=== PATIENT | male | born 1990 | race Caucasian/White ===

== ENCOUNTER 2017-05-09 11:57 | Emergency (ER) | payer MEDICAID, SELFPAY ==
[2017-05-09 12:13] VITALS: BP 111/70; PULSE 96; RESP 20; TEMP 37.7; O2SAT 99; BMI 19.8
[2017-05-09 12:46] LABS: UTC Influenza A Antigen Negative (Negative); UTC Influenza B Antigen Negative (Negative)
--- NOTE | 2017-05-09 13:02 | HMH.EDUTC ---
[facility] [place] Impression: Upper respiratory infection Qualifiers: URI type: unspecified URI Qualified Code(s): J06.9 - Acute upper respiratory infection, unspecified Disposition: Home, Self-Care Condition on Discharge: Good Instructions: Cough, DI for Cough -- Adult, DI for Nasal Congestion, Sore Throat, DI for Sinus Headache Additional Instructions: * Monitor Temp. Tylenol and/or Ibuprofen as needed. ER if fever is no less than 101 despite alternating Tylenol and Ibuprofen * Encourage fluids, water, Gatorade, powerade, pedialyte if infant/toddler/or child * Warm salt water gargles for throat irritation *Warm fluids *Sore throat lozenges *Sleep elevated *humidifier or vaporizer Lots of rest Increase fluids, water, Gatorade, powerade *Flonase 2 sprays each nostril daily but may take 2-3 days to notice improvement with it *Bromfed may cause drowsiness. Know how it effect you or your child. Before driving, caring for small children or sending your child to school Follow up IMMEDIATELY for new or worsening of symptoms OR no noticeable improvement over the next 48-72 hours. 911 immediately for any life threatening symptoms such as chest pain or difficulty breathing Prescriptions: Brompheniramine/Pseudoephed/Dm [Bromfed DM Cough Syrup 5mL] 10 ml PO Q4HP PRN #250 ml PRN Reason: Cough Azithromycin [Z-Aryan 250mg Tab] 250 mg PO UD DOSE PK #6 tab Fluticasone Propionate [Flonase 50mcg nasal spray 16gm] 2 spr NS DAILY #1 bottle predniSONE [Prednisone 20mg Tab] 20 mg PO BID #10 tab Time of Disposition: 13:11 Medical Decision Making - Medical Records Medical records reviewed: Yes: I reviewed the patient's medical records. Vital Signs: 05/09/17 12:13 Temperature 99.8 F H Temperature Source Temporal Artery Scan Pulse Rate [Right] 96 H Respiratory Rate 20 Blood Pressure [Right Arm] 111/70 Blood Pressure Mean [Right Arm] 83 Blood Pressure Source [Right Arm] Automatic Cuff Blood Pressure Position [Right Arm] Sitting 02 Sat by Pulse Oximetry 99 Oxygen Delivery Method Room Air - Lab Data Lab Results 05/09/17 12:45: Influenza Type A Ag Negative, Influenza Type B Ag Negative - Peter Inquiry Pt receiving controlled substance: No Peter was queried for this patient: No [facility] [place] - General Stated complaint: flu like symtoms bad massey Mode of Arrival: Ambulatory Source of Information: Patient Limitations: No Limitations Description of Symptoms (Recalled from Triage Doc. by RN): HEADACHE CONGESTION, WEAK HEENT Symptoms (Recalled from RN notes): Yes Resp Symptoms (Recalled from RN notes): No Skin Symptoms (Recalled from RN notes): No MS Symptoms (Recalled from RN notes): No Functional Status (Recalled from RN notes): N - History of Present Illness Provider Complaint: Patient state that he has been having sinus pain and pressure feeling behind his eyes for that last 2-3 days State that he feels like his throat is sore and had a sinus headache State that his nose is congestion. throat sore and feels like he has some pressure in his ears State that earlier this morning he felt like he may have a fever - Related Data Previous Rx's Medication Instructions Recorded Azithromycin [Z-Aryan 250mg Tab] 250 mg PO UD DOSE PK #6 tab 05/09/17 Brompheniramine/Pseudoephed/Dm 10 ml PO Q4HP PRN #250 ml 05/09/17 [Bromfed DM Cough Syrup 5mL] Fluticasone Propionate [Flonase 2 spr NS DAILY #1 bottle 05/09/17 50mcg nasal spray 16gm] predniSONE [Prednisone 20mg 20 mg PO BID #10 tab 05/09/17 Tab] Allergies Allergy/AdvReac Type Severity Reaction Status Date / Time No Known Allergies Allergy Verified 05/09/17 12:20 - Worker's Comp Is this a Worker's Comp case?: No [facility] History I have reviewed the patient's past medical history: Yes - *Social History Alcohol Intake: never - Psychiatric History Expresses thoughts of harming self/others: None Suicide Plan Description: No Plan ROS Obtained: Y
--- NOTE | 2017-05-09 13:06 | ED_ITS ---
[facility] – [place] Disposition Clinical Impression: Upper respiratory infection Qualifiers: URI type: unspecified URI Qualified Code(s): J06.9 - Acute upper respiratory infection, unspecified Disposition: Home, Self-Care Condition on Discharge: Good Instructions: Cough, DI for Cough -- Adult, DI for Nasal Congestion, Sore Throat, DI for Sinus Headache Additional Instructions: * Monitor Temp. Tylenol and/or Ibuprofen as needed. ER if fever is no less than 101 despite alternating Tylenol and Ibuprofen * Encourage fluids, water, Gatorade, powerade, pedialyte if infant/toddler/or child * Warm salt water gargles for throat irritation *Warm fluids *Sore throat lozenges *Sleep elevated *humidifier or vaporizer Lots of rest Increase fluids, water, Gatorade, powerade *Flonase 2 sprays each nostril daily but may take 2-3 days to notice improvement with it *Bromfed may cause drowsiness. Know how it effect you or your child. Before driving, caring for small children or sending your child to school Follow up IMMEDIATELY for new or worsening of symptoms OR no noticeable improvement over the next 48-72 hours. 911 immediately for any life threatening symptoms such as chest pain or difficulty breathing Prescriptions: Brompheniramine/Pseudoephed/Dm [Bromfed DM Cough Syrup 5mL] 10 ml PO Q4HP PRN # 250 ml PRN Reason: Cough Azithromycin [Z-Aryan 250mg Tab] 250 mg PO UD DOSE PK #6 tab Fluticasone Propionate [Flonase 50mcg nasal spray 16gm] 2 spr NS DAILY #1 bottle predniSONE [Prednisone 20mg Tab] 20 mg PO BID #10 tab Time of Disposition: 13:11 Medical Decision Making - Medical Records Medical records reviewed: Yes: I reviewed the patient's medical records. Vital Signs: 05/09/17 12:13 Temperature 99.8 F H Temperature Source Temporal Artery Scan Pulse Rate [Right] 96 H Respiratory Rate 20 Blood Pressure [Right Arm] 111/70 Blood Pressure Mean [Right Arm] 83 Blood Pressure Source [Right Arm] Automatic Cuff Blood Pressure Position [Right Arm] Sitting 02 Sat by Pulse Oximetry 99 Oxygen Delivery Method Room Air - Lab Data Lab Results 05/09/17 12:45: Influenza Type A Ag Negative, Influenza Type B Ag Negative - Peter Inquiry Pt receiving controlled substance: No Peter was queried for this patient: No [facility] [place] HPI - General Stated complaint: flu like symtoms bad massey Mode of Arrival: Ambulatory Source of Information: Patient Limitations: No Limitations Description of Symptoms (Recalled from Triage Doc. by RN): HEADACHE CONGESTION, WEAK HEENT Symptoms (Recalled from RN notes): Yes Resp Symptoms (Recalled from RN notes): No Skin Symptoms (Recalled from RN notes): No MS Symptoms (Recalled from RN notes): No Functional Status (Recalled from RN notes): N - History of Present Illness Provider Complaint: Patient state that he has been having sinus pain and pressure feeling behind his eyes for that last 2-3 days State that he feels like his throat is sore and had a sinus headache State that his nose is congestion. throat sore and feels like he has some pressure in his ears State that earlier this morning he felt like he may have a fever - Related Data Previous Rx's Medication Instructions Recorded Azithromycin [Z-Aryan 250mg Tab] 250 mg PO UD DOSE PK #6 tab 05/09/17 Brompheniramine/Pseudoephed/Dm 10 ml PO Q4HP PRN #250 ml 05/09/17 [Bromfed DM Cough Syrup 5mL] Fluticasone Propionate [Flonase 2 spr NS IGNACIA
[2017-05-09 13:13] VITALS: BP 111/70; PULSE 90; RESP 20; TEMP 37.2
== END 2017-05-09 13:23 | disposition home or self-care (01) ==
PROVIDERS: Emergency Provider Nurse Practitioner
DX: J06.9 Acute upper respiratory infection, unspecified (principal)
CPT/HCPCS: 87804; 99201

== ENCOUNTER → 2018-10-07 15:40 | Outpatient (CLI) | payer MEDICAID, SELFPAY ==
--- NOTE | 2018-10-07 15:56 | XR_ITS ---
XR hand RT 2V HISTORY: Pain and swelling right hand following injury ITS.REASON: R hand pain ORDERING PHYSICIAN: Hans Carlson APRN PATIENT AGE: 28 years COMPARISON: None FINDINGS: Nondisplaced fractures present involving the distal aspect of the fifth metacarpal with mild radial angulation of the distal fracture fragment and mild impaction of fracture fragments. IMPRESSION: Boxer's fracture distal aspect of fifth metacarpal
== END ==
PROVIDERS: PCP Emergency Medicine; Visit Provider Nurse Practitioner Family
DX: M79.641 Pain in right hand (principal)
CPT/HCPCS: 73120

== ENCOUNTER 2019-09-22 23:15 | Emergency (ER) | payer MEDICAID, SELFPAY ==
[2019-09-22 23:40] VITALS: BP 105/66; PULSE 95; RESP 16; TEMP 37.2; O2SAT 100; BMI 19.1
--- NOTE | 2019-09-23 00:16 | XR_ITS ---
PROCEDURE: XR CHEST PORTABLE CLINICAL HISTORY: rib pain COMPARISON: No exams were available for comparison FINDINGS: The cardiomediastinal silhouette and pulmonary vascularity are within normal limits. The lungs are clear without infiltrates, suspicious nodules, or pleural effusions. No acute bony abnormalities. IMPRESSION: No acute findings. Dictated by: Jeffy Chavira 09/23/2019 08:11 Electronically signed by Jeffy Chavira in [place] 09/23/2019 08:11
[2019-09-23 00:20] LABS: Basophils % 0.2 % (0.1-2.0); Eosinophils # 0.1 K/mm3 (0.0-0.4); Eosinophils % 0.4 % (0.1-12.0); Hematocrit 37.6 % (42.0-52.0); Hemoglobin 12.9 g/dL (14.1-18.0); Lymphocytes % 7.7 % (10-50); Mean Corpuscular HGB Conc 34.3 g/dL (31.8-35.4); Mean Corpuscular Hemoglobin 27.5 pg (27.0-31.2); Mean Corpuscular Volume 80.3 fl (80-94); Mean Platelet Volume 10.5 fl (7.4-10.4); Monocytes # 0.5 K/mm3 (0.1-1.0); Monocytes % 3.8 % (1.7-9.3); Neutrophils # 11.5 K/mm3 (1.8-7.8); Neutrophils % 87.8 % (37.0-80.0); Platelet Count 72 K/mm3 (142-424); Red Blood Count 4.68 M/mm3 (4.60-6.20); Red Cell Distribution Width 13.5 % (11.5-17.5); White Blood Count 13.1 K/mm3 (4.8-10.8)
[2019-09-23 00:25] LABS: Alanine Aminotransferase 35 U/L (12-78); Albumin Level 3.7 g/dl (3.5-5.0); Albumin/Globulin Ratio 1.1 (1.1-1.8); Alkaline Phosphatase 269 U/L (38-126); Anion Gap 13.2 mEq/L (5-15); Aspartate Amino Transferase 46 U/L (17-59); Bilirubin,Total 1.3 mg/dl (0.2-1.3); Blood Urea Nitrogen 21 mg/dl (9-20); Calcium 9.1 mg/dl (8.4-10.2); Carbon Dioxide 30 mmol/L (22.0-30.0); Chloride 88 mmol/L (98-107); Creatinine Clearance Estimated 100 mL/min (50-200); Estimated Glomerular Filt Rate 88 ml/min (>60); GFR (African American) 106 ML/MIN (>60); Globulin 3.5 g/dL (1.3-3.2); Glucose 143 mg/dl (74-100); Potassium 4.2 mmoL/L (3.5-5.1); Sodium 127 mmol/L (136-145); Total Protein,Serum 7.2 g/dl (6.3-8.2)
[2019-09-23 00:28] LABS: MANUAL DIFFERENTIAL MANUAL DIFFERENTIAL (MANUAL DIFF)
[2019-09-23 00:37] LABS: Acetaminophen < 10 ug/ml (10-30)
[2019-09-23 01:07] LABS: Salicylate < 1.0 mg/dL (2.0-20.0)
[2019-09-23 01:13] LABS: Ethyl Alcohol < 10 mg/dl (0-10)
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
[2019-09-23 01:19] LABS: Lymphocytes % 9 % (10-50); Monocytes % 3 % (2-9); Neutrophils % 88 % (42-76); Total Cells Counted 100
[2019-09-23 01:20] LABS: Acanthocytes 1+; Microcytosis 1+; Platelet Estimate Normal
[2019-09-23 01:22] VITALS: BP 142/89; PULSE 79; RESP 18; TEMP 36.7; O2SAT 98
== END 2019-09-23 01:27 | disposition home or self-care (01) ==
PROVIDERS: Emergency Provider Family Medicine
DX: S20.20XA Contusion of thorax, unspecified, initial encounter (principal); Y04.0XXA Assault by unarmed brawl or fight, initial encounter; F41.9 Anxiety disorder, unspecified
CPT/HCPCS: 71045; 80053; 80329; 85007; 85025; 99282

== ENCOUNTER 2019-12-27 19:30 | Emergency (ER) | payer MEDICAID, SELFPAY ==
[2019-12-27 19:30] VITALS: BP 140/100; PULSE 96; RESP 16; TEMP 36.7; O2SAT 100; BMI 17.8
--- NOTE | 2019-12-27 19:39 | XR_ITS ---
PROCEDURE: XR CHEST 2V CLINICAL HISTORY: overdose COMPARISON: CR XR CHEST PORTABLE from 09/23/2019 FINDINGS: Interval median sternotomy. Normal heart size. There are atelectatic changes in the left lung base. Nodular density in the left lung base laterally which may be part of the atelectatic change and may be confirmed with follow-up. The remaining lungs are clear. No acute bony abnormalities. IMPRESSION: Interval median sternotomy with left basilar atelectasis and nonspecific nodular density left lung base possibly related to the atelectasis. Follow-up may confirm Dictated by: Ritchie Villanueva MD 12/28/2019 06:00 Ritchie Villanueva MD in [place] 12/28/2019 06:00
[2019-12-27 19:49] LABS: Basophils # 0.1 K/mm3 (0-0.2); Basophils % 0.8 % (0.1-2.0); Eosinophils # 0.2 K/mm3 (0.0-0.4); Eosinophils % 2.4 % (0.1-12.0); Hematocrit 39.9 % (42.0-52.0); Hemoglobin 12.1 g/dL (14.1-18.0); Lymphocytes # 2.2 K/mm3 (0.7-4.5); Lymphocytes % 25.7 % (10-50); Mean Corpuscular HGB Conc 30.2 g/dL (31.8-35.4); Mean Corpuscular Hemoglobin 26.2 pg (27.0-31.2); Mean Corpuscular Volume 86.6 fl (80-94); Mean Platelet Volume 7.6 fl (7.4-10.4); Monocytes # 0.3 K/mm3 (0.1-1.0); Monocytes % 3.1 % (1.7-9.3); Neutrophils # 5.9 K/mm3 (1.8-7.8); Platelet Count 294 K/mm3 (142-424); Red Blood Count 4.61 M/mm3 (4.60-6.20); Red Cell Distribution Width 17.9 % (11.5-17.5); White Blood Count 8.7 K/mm3 (4.8-10.8)
[2019-12-27 20:00] VITALS: BP 119/96; PULSE 59; RESP 17; O2SAT 100
[2019-12-27 20:02] LABS: Chloride 105 mmol/L (98-107)
[2019-12-27 20:03] LABS: Potassium 4.8 mmoL/L (3.5-5.1); Sodium 143 mmol/L (136-145)
[2019-12-27 20:05] LABS: Alanine Aminotransferase 19 U/L (12-78); Albumin Level 4.6 g/dl (3.5-5.0); Albumin/Globulin Ratio 1.6 (1.1-1.8); Alkaline Phosphatase 46 U/L (38-126); Anion Gap 17.8 mEq/L (5-15); Aspartate Amino Transferase 47 U/L (17-59); Bilirubin,Total 0.8 mg/dl (0.2-1.3); Blood Urea Nitrogen 9 mg/dl (9-20); Calcium 9.6 mg/dl (8.4-10.2); Carbon Dioxide 25 mmol/L (22.0-30.0); Creatinine Clearance Estimated 85 mL/min (50-200); Estimated Glomerular Filt Rate 79 ml/min (>60); GFR (African American) 95 ML/MIN (>60); Globulin 2.9 g/dL (1.3-3.2); Glucose 109 mg/dl (74-100); Total Protein,Serum 7.5 g/dl (6.3-8.2)
--- NOTE | 2019-12-27 20:06 | HMH.EDOD ---
ED Disposition Clinical Impression: Heroin overdose Qualifiers: Encounter type: initial encounter Injury intent: accidental or unintentional Qualified Code(s): T40.1X1A - Poisoning by heroin, accidental (unintentional), initial encounter Disposition: Home, Self-Care Condition on Discharge: Good Instructions: DI for Drug Overdose in Adults Additional Instructions: see pcp and consider rehab Referrals: PCP,No [Non-Staff] - - Critical Care Critical Care Time: No Attestation: On 12/27/19, the high probability of a clinically significant, sudden or life threatening deterioration of the following system(s) required my full and direct attention, intervention and personal management. The time I documented below is in addition to time spent performing reported procedures but includes the following listed in this critical care notation. Medical Decision Making - Medical Records Medical records reviewed: Yes: I reviewed the patient's medical records. - Peter Inquiry Pt receiving controlled substance: No Vital Signs: 12/27/19 19:30 Temperature 98.0 F Temperature Source Oral Pulse Rate [Right Brachial] 96 H Respiratory Rate 16 Blood Pressure [Right Arm] 140/100 H Blood Pressure Mean [Right Arm] 113 Blood Pressure Source [Right Arm] Automatic Cuff Blood Pressure Position [Right Arm] Sitting 02 Sat by Pulse Oximetry 100 Oxygen Delivery Method Room Air - Lab Data Lab results reviewed: Yes: I reviewed the patient's lab results. Lab Results 12/27/19 19:41: WBC 8.7, RBC 4.61, Hgb 12.1 L, Hct 39.9 L, MCV 86.6, MCH 26.2 L, MCHC 30.2 L, RDW 17.9 H, Plt Count 294, MPV 7.6, Neut % (Auto) 68.0, Lymph % (Auto) 25.7, [place] % (Auto) 3.1, Eos % (Auto) 2.4, Baso % (Auto) 0.8, Neut # (Auto) 5.9, Lymph # (Auto) 2.2, [place] # (Auto) 0.3, Eos # (Auto) 0.2, Baso # (Auto) 0.1 12/27/19 19:41: Sodium 143, Potassium 4.8, Chloride 105, Carbon Dioxide 25, Anion Gap 17.8 H, BUN 9, Creatinine 1.10, Estimated Creat Clear 85, Estimated GFR 79, Est GFR ( Amer) 95, Glucose 109 H, Calcium 9.6, Total Bilirubin 0.8, AST 47, ALT 19, Alkaline Phosphatase 46, Total Protein 7.5, Albumin 4.6, Globulin 2.9, Albumin/Globulin Ratio 1.6, Salicylates < 1.0 L, Acetaminophen < 10 L 12/27/19 19:41: Plasma/Serum Alcohol < 10 Result diagrams: 12/27/19 19:41 12/27/19 19:41 Orders (Tests/Meds): ED MEDICATIONS Generic Name Dose Route Start Last Admin Trade Name Freq PRN Reason Stop Dose Admin Sodium Chloride 1,000 mls @ 999 mls/hr 12/27/19 20:00 12/27/19 20:00 Sod Chlor 0.9% 1000ml Bag IV 12/27/19 21:00 999 mls/hr .Q1H1M RENE Administration ORDERS Category Date Time Status XR chest 2V Stat Exams 12/27/19 19:39 Ordered Drug Screen,Urine Stat Lab 12/27/19 19:39 Ordered - Radiology Data #1 Image(s): Chest Image Reviewed: Yes I reviewed the patient's radiology image Preliminary Findings: Normal/NAD Overdose HPI - General Chief Complaint: Overdose Stated Complaint: Overdose Time Seen by Provider: 12/27/19 20:00 Mode of Arrival: EMS Source of Information: Patient, EMS, Medical Record Limitations: No Limitations Description of Symptoms (Recalled from ER Triage Doc. by RN): Patient brought in by [facility] with reports she overdosed on herion in his grandmothers bathroom. Patient received 1mg narcan IN and 1mg IV in route. - History of Present Illness HPI Narrative: heroin use at home and responded to heroin complaint: accidental overdose Onset (ago): hour(s) Timing confirmed by: family member Context: Accidental Overdose: wanted to get high Treatments Prior to Arrival: narcan - Related Data Home Medications Medication Instructions Recorded Confirmed No Known Home Medications 12/27/19 12/27/19 Allergies Allergy/AdvReac Type Severity Reaction Status Date / Time No Known Allergies Allergy Verified 06/18/19 10:16 [facility] History - Hepatitis A Screen Drug use history?: Yes High risk sexual b
[2019-12-27 20:07] LABS: Acetaminophen < 10 ug/ml (10-30); Salicylate < 1.0 mg/dL (2.0-20.0)
[2019-12-27 20:12] LABS: Ethyl Alcohol < 10 mg/dl (0-10)
[2019-12-27 20:22] VITALS: BP 134/91; PULSE 78; RESP 16; O2SAT 98
[2019-12-27 20:27] VITALS: BP 136/92; PULSE 76; RESP 14; TEMP 36.6; O2SAT 99
== END 2019-12-27 20:29 | disposition home or self-care (01) ==
PROVIDERS: Emergency Provider Emergency Medicine; PCP Emergency Medicine
DX: T40.1X1A Poisoning by heroin, accidental (unintentional), initial encounter (principal); F41.9 Anxiety disorder, unspecified
CPT/HCPCS: 71046; 80053; 80329; 85025; 96365; 99283

== ENCOUNTER 2020-04-05 14:24 | Emergency (ER) | payer MEDICAID, SELFPAY ==
[2020-04-05 14:24] VITALS: BP 144/95; PULSE 77; RESP 16; TEMP 36.4; O2SAT 100; BMI 21.1
--- NOTE | 2020-04-05 14:54 | HMH.EDUTC ---
[facility] [place] Disposition Clinical Impression: Viral syndrome, Exposure to COVID-19 virus Disposition: Home, Self-Care Condition on Discharge: Good Instructions: DI for COVID-19 (Suspected or Confirmed ), Preventing the Spread of Coronavirus Discharge Instructions Additional Instructions: Drink plenty of fluids. Take tylenol for pain or fever. Return if you begin to have difficulty breathing. Follow up with your regular doctor. GO TO THE ER FOR ANY WORSENING SYMPTOMS Prescriptions: Albuterol Sulfate [Albuterol Sulfate Hfa] 2 puffs IH Q6HP PRN 30 Days #1 hfa.aer.ad PRN Reason: Shortness Of Breath Transmission Status: Received by [facility] Ondansetron [Zofran 4mg ODT] 4 mg PO Q8HP PRN #9 tab.rapdis PRN Reason: Nausea Transmission Status: Received by [facility] Benzonatate [Tessalon Perle 100mg Cap] 100 mg PO TIDP PRN #30 cap PRN Reason: Cough Transmission Status: Received by [facility] Azithromycin [Z-Aryan 250mg Tab*] 250 mg PO UD DOSE PK #6 tab Transmission Status: Received by [facility] Referrals: PCP,No [Primary Care Provider] - Forms: Work/School Release Time of Disposition: 14:57 Medical Decision Making - Medical Records Medical records reviewed: No: I reviewed the patient's medical records. - Peter Inquiry Pt receiving controlled substance: No Vital Signs: 04/05/20 14:24 04/05/20 15:08 Temperature 97.5 F L 97.5 F L Temperature Source Oral Oral Pulse Rate 77 Pulse Rate [Right] 77 Respiratory Rate 16 16 Blood Pressure 144/95 H Blood Pressure [Right Arm] 144/95 H Blood Pressure Mean [Right Arm] 111 02 Sat by Pulse Oximetry 100 [facility] [place] HPI - General Stated complaint: Covid test Time Seen by Provider: 04/05/20 14:54 Mode of Arrival: Ambulatory Source of Information: Patient Description of Symptoms (Recalled from Triage Doc. by RN): pt requesting COVID test. pt c/o CHEUNG sore throat and fatigue HEENT Symptoms (Recalled from RN notes): Yes Resp Symptoms (Recalled from RN notes): Yes Skin Symptoms (Recalled from RN notes): No MS Symptoms (Recalled from RN notes): No Functional Status (Recalled from RN notes): wnl - History of Present Illness Provider Complaint: He states that he has been having nausea, cough, chest tightness and fatigue for the past 2 days. He denies any documented exposure to covid-19, but he has been around several people at his job. He does have a history of asthma, but he denies significant shortness of breath so far. - Related Data Previous Rx's Medication Instructions Recorded Albuterol Sulfate [Albuterol 2 puffs IH Q6HP PRN 30 Days #1 04/05/20 Sulfate Hfa] hfa.aer.ad Azithromycin [Z-Aryan 250mg Tab*] 250 mg PO UD DOSE PK #6 tab 04/05/20 Benzonatate [Tessalon Perle 100mg 100 mg PO TIDP PRN #30 cap 04/05/20 Cap] Ondansetron [Zofran 4mg ODT] 4 mg PO Q8HP PRN #9 tab.rapdis 04/05/20 Allergies Allergy/AdvReac Type Severity Reaction Status Date / Time No Known Allergies Allergy Verified 04/05/20 14:43 - Worker's Comp Is this a Worker's Comp case?: No Is this an H Worker's Comp?: No Is this a Alan Worker's Comp?: No [facility] History - Hepatitis A Screen Drug use history?: No High risk sexual behaviors?: No History of sexually transmitted infection?: No Currently employed?: No Childcare worker?: No Do you have indoor plumbing?: Yes Do you have electricity?: Yes Attestation statement:: This patient has been screened for Hepatitis A risk factors. I have reviewed the patient's past medical history: Yes Medical History: Reports:: Anxiety Laterality Cases: Bilateral: Tonsillectomy Other Surgeries: Yes: Other Amputation: No Fractures: Yes (RT Wrist) - Social History Smoking Status: Never smoker Tobacco Type: smokeless tobacco Alcohol Intake: never Substance Use Type: former substance user, heroin, methamphetamine Occupational Status: unemployed Housing: h
[2020-04-05 15:08] VITALS: BP 144/95; PULSE 77; RESP 16; TEMP 36.4; O2SAT 100
--- NOTE | 2020-04-06 09:04 | PC.NURSE ---
unable to reach patient to give positive covid results
--- NOTE | 2020-04-06 17:48 | PC.NURSE ---
multiple attempts made in order to inform patient of positive covid results.
== END 2020-04-05 15:09 | disposition home or self-care (01) ==
PROVIDERS: Emergency Provider Nurse Practitioner Family
DX: U07.1 COVID-19 (principal); F41.9 Anxiety disorder, unspecified
CPT/HCPCS: 99202; G0463; U0003

== ENCOUNTER 2020-04-20 16:46 | Emergency (ER) | payer MEDICAID, SELFPAY ==
[2020-04-20 16:47] VITALS: BP 125/90; PULSE 96; RESP 20; O2SAT 96; BMI 20.9
--- NOTE | 2020-04-20 16:47 | XR_ITS ---
PROCEDURE: XR CHEST 2V CLINICAL HISTORY: Chest pain Left-sided chest pain COMPARISON: CR XR CHEST PORTABLE from 09/23/2019 CR XR CHEST 2V from 12/27/2019 FINDINGS: Prior CABG. Normal heart size. The lungs are clear without infiltrates, suspicious nodules, or pleural effusions. No acute bony abnormalities. IMPRESSION: No acute findings. Dictated by: Ritchie Villanueva MD 04/20/2020 20:32 Ritchie Villanueva MD in [place] 04/20/2020 20:32
--- NOTE | 2020-04-20 16:47 | ECG_ITS ---
APPROVED REPORT Exam: Resting ECG HR:87 bpm ECG Measurements Heart Rate 87 AXES AZ 124 P 67 QRSd 96 QRS 58 QT 364 T -14 QTc 438 Conclusion Normal sinus rhythm Isolated q in III Abnormal ECG Electronically signed by : Jorge Hyman, 04/21/2020 18:07:09
[2020-04-20 17:47] VITALS: BP 130/97; PULSE 87; RESP 18; O2SAT 100
--- NOTE | 2020-04-20 17:51 | HMH.EDGENADL ---
ED Disposition <Anthony Feldman - Last Filed: 04/20/20 17:51> Condition on Discharge: Good - Critical Care Critical Care Time: No <Noel Castrejon - Last Filed: 04/20/20 22:47> Clinical Impression: Atypical chest pain, Elevated troponin Disposition: Home, Self-Care Instructions: DI for Atypical Chest Pain Additional Instructions: see pcp or return to ed in am Referrals: PCP,No [Primary Care Provider] - Attestation: On 04/20/20, the high probability of a clinically significant, sudden or life threatening deterioration of the following system(s) required my full and direct attention, intervention and personal management. The time I documented below is in addition to time spent performing reported procedures but includes the following listed in this critical care notation. Medical Decision Making - Medical Records Medical records reviewed: Yes: I reviewed the patient's medical records. - Peter Inquiry Pt receiving controlled substance: No - Lab Data Lab results reviewed: Yes: I reviewed the patient's lab results. Result diagrams: 04/20/20 18:10 04/20/20 18:10 - Radiology Data #1 Image(s): Chest Preliminary Findings: Normal/NAD - ECG Data Tracing #1 Normal Sinus Rhythm: Yes Ischemic changes: non-specific ST-T wave changes - LORRAINE Score for Non-Stemi Age of Patient: 30-39 years old Heart Rate: 90-109 bpm Systolic Blood Pressure: 120-139 mmhg Serum Creatinine: 0.80-1.19 mg/dl CHF [place] Class: I-No CHF Other Risk Factors: Elevated Cardiac Enzymes or Biomarkers Non-Stemi Risk Score: 78 <Noel Castrejon - Last Filed: 04/20/20 22:47> Vital Signs: 04/20/20 16:47 04/20/20 17:47 04/20/20 18:30 Pulse Rate [Left Radial] 96 H 87 100 H Respiratory Rate 20 18 Blood Pressure [Right Arm] 125/90 130/97 H 117/82 Blood Pressure Mean [Right Arm] 101 108 93 Blood Pressure Source [Right Arm] Automatic Cuff Automatic Cuff Automatic Cuff Blood Pressure Position [Right Arm] Sitting Supine Sitting 02 Sat by Pulse Oximetry 96 100 100 Oxygen Delivery Method Room Air Room Air - Lab Data Lab Results 04/20/20 18:10: WBC 11.0 H, RBC 5.63, Hgb 14.8, Hct 45.3, MCV 80.4, MCH 26.3 L, MCHC 32.6, RDW 12.7, Plt Count 269, MPV 7.2 L, Neut % (Auto) 57.8, Lymph % (Auto) 29.6, [place] % (Auto) 10.0 H, Eos % (Auto) 2.0, Baso % (Auto) 0.7, Neut # (Auto) 6.4, Lymph # (Auto) 3.3, [place] # (Auto) 1.1 H, Eos # (Auto) 0.2, Baso # (Auto) 0.1 04/20/20 18:10: Sodium 138, Potassium 4.2, Chloride 96 L, Carbon Dioxide 34 H, Anion Gap 12.2, BUN 8 L, Creatinine 0.80, Estimated Creat Clear 133, Estimated GFR 114, Est GFR ( Amer) 137, Glucose 109 H, Calcium 10.1, Troponin I 0.76 H 04/20/20 18:10: Lactate 1.3 04/20/20 18:10: ESR 42 H 04/20/20 18:10: C-Reactive Protein 70.5 H, Procalcitonin 0.061 04/20/20 20:01: Troponin I 0.82 H Orders (Tests/Meds): ORDERS Category Date Time Status US breast LT complete Stat Exams 04/20/20 17:55 Taken Troponin I Q3H Lab 04/20/20 23:00 Ordered Blood Culture Stat Micro 04/20/20 19:00 Received General Adult HPI - General Mode of Arrival: Ambulatory Source of Information: Patient Limitations: No Limitations Description of Symptoms (Recalled from ER Triage Doc. by RN): PT STATES THAT HE HAS LEFT NIPPLE/BREAST PAIN. WHEN PALPATED AROUND NIPPLE AREA ON LEFT IT IS HARD AND FIRMER KIND OF TISSUE NOTED. THE PAIN IS WHEN PRESSED DIRECTLY TO HIS NIPPLE AREA. - History of Present Illness Onset (ago): day(s) Location: chest <Anthony Feldman - Last Filed: 04/20/20 17:51> - General Source of Information: Spouse, Medical Record - History of Present Illness Severity: moderate Associated symptoms: denies other symptoms Treatments prior to arrival: none <Noel Castrejon - Last Filed: 04/20/20 22:47> - General Chief complaint: PAIN Stated complaint: Chest Pain Time Seen by Provider: 04/20/20 17:31 - History of Present Illness HPI narrative: This is a 29-year-old
--- NOTE | 2020-04-20 17:55 | US_ITS ---
PROCEDURE: US BREAST LT COMPLETE CLINICAL INDICATION: hard area left breast, h/o drug use, endocarditis COMPARISON: No exams were available for comparison FINDINGS: No cystic or sonographic abnormalities are demonstrated. IMPRESSION: Unremarkable left breast ultrasound Dictated by: Ritchie Villanueva MD 05/01/2020 12:36 Ritchie Villanueva MD in [facility] 05/01/2020 12:36
[2020-04-20 18:22] LABS: Basophils # 0.1 K/mm3 (0-0.2); Basophils % 0.7 % (0.1-2.0); Eosinophils # 0.2 K/mm3 (0.0-0.4); Hematocrit 45.3 % (42.0-52.0); Hemoglobin 14.8 g/dL (14.1-18.0); Lymphocytes # 3.3 K/mm3 (0.7-4.5); Lymphocytes % 29.6 % (10-50); Mean Corpuscular HGB Conc 32.6 g/dL (31.8-35.4); Mean Corpuscular Hemoglobin 26.3 pg (27.0-31.2); Mean Corpuscular Volume 80.4 fl (80-94); Mean Platelet Volume 7.2 fl (7.4-10.4); Monocytes # 1.1 K/mm3 (0.1-1.0); Neutrophils # 6.4 K/mm3 (1.8-7.8); Neutrophils % 57.8 % (37.0-80.0); Platelet Count 269 K/mm3 (142-424); Red Blood Count 5.63 M/mm3 (4.60-6.20); Red Cell Distribution Width 12.7 % (11.5-17.5)
[2020-04-20 18:26] LABS: Chloride 96 mmol/L (98-107); Potassium 4.2 mmoL/L (3.5-5.1); Sodium 138 mmol/L (136-145)
[2020-04-20 18:29] LABS: Anion Gap 12.2 mEq/L (5-15); Blood Urea Nitrogen 8 mg/dl (9-20); Calcium 10.1 mg/dl (8.4-10.2); Carbon Dioxide 34 mmol/L (22.0-30.0); Creatinine Clearance Estimated 133 mL/min (50-200); Estimated Glomerular Filt Rate 114 ml/min (>60); GFR (African American) 137 ML/MIN (>60); Glucose 109 mg/dl (74-100)
[2020-04-20 18:30] VITALS: BP 117/82; PULSE 100; O2SAT 100
[2020-04-20 18:30] LABS: Lactic Acid 1.3 mmol/L (0.7-2.1)
[2020-04-20 18:52] LABS: Troponin I 0.76 ng/ml (0.00-0.034)
--- NOTE | 2020-04-20 18:54 | PC.NURSE ---
dr riojas informed of critical trop
--- NOTE | 2020-04-20 19:35 | PC.NURSE ---
REPORT GIVEN TO RICHARD IGNACIO
[2020-04-20 20:14] LABS: C-Reactive Protein 70.5 mg/L (0-4)
[2020-04-20 20:27] LABS: Procalcitonin 0.061 ng/mL (0.0-2.0)
[2020-04-20 20:31] LABS: Troponin I 0.82 ng/ml (0.00-0.034)
--- NOTE | 2020-04-20 20:31 | PC.NURSE ---
Trop. reported to
[2020-04-20 20:33] LABS: Erythrocyte Sedimentation Rate 42 mm/hr (0-15)
[2020-04-20 22:53] VITALS: BP 122/76; PULSE 92; RESP 16; TEMP 37; O2SAT 100
== END 2020-04-20 22:55 | disposition home or self-care (01) ==
PROVIDERS: Emergency Medicine; Emergency Provider Emergency Medicine
DX: R07.89 Other chest pain (principal); R77.8 Other specified abnormalities of plasma proteins; F19.11 Other psychoactive substance abuse, in remission; F41.9 Anxiety disorder, unspecified; Z79.899 Other long term (current) drug therapy
CPT/HCPCS: 36415; 71046; 76641; 80048; 83605; 84145; 84484; 85025; 85651; 86140; 87040; 93005; 99284

== ENCOUNTER 2020-04-21 17:29 | Emergency (ER) | payer MEDICAID, SELFPAY ==
[2020-04-21 17:30] VITALS: BP 137/74; PULSE 78; RESP 18; TEMP 36.6; O2SAT 98; BMI 20.7
--- NOTE | 2020-04-21 17:34 | HMH.EDGENADL ---
ED Disposition Clinical Impression: Chest pain Qualifiers: Chest pain type: other chest pain Qualified Code(s): R07.89 - Other chest pain Disposition: Home, Self-Care Condition on Discharge: Good Instructions: DI for Atypical Chest Pain Additional Instructions: Please report to [facility] for your follow-up appointment. Return immediately overnight if any fatigue, dyspnea, fever/chills, generalized malaise, worsening chest pain, or other new concerning symptoms. - Critical Care Critical Care Time: No Attestation: On , the high probability of a clinically significant, sudden or life threatening deterioration of the following system(s) required my full and direct attention, intervention and personal management. The time I documented below is in addition to time spent performing reported procedures but includes the following listed in this critical care notation. Medical Decision Making - Medical Records Medical records reviewed: Yes: I reviewed the patient's medical records. - Peter Inquiry Pt receiving controlled substance: No Orders (Tests/Meds): ORDERS Category Date Time Status Basic Metabolic Panel Stat Lab 04/21/20 17:45 Ordered Complete Blood Count Auto Diff Stat Lab 04/21/20 17:45 Ordered Troponin I Q3H Lab 04/21/20 20:45 Ordered Troponin I Q3H Lab 04/21/20 23:45 Ordered Troponin I Stat Lab 04/21/20 17:45 Ordered Medical Decision Narrative: Patient presents for echocardiogram. Patient arrives after echocardiogram services are available here at this hospital. I am concerned this patient is thought that may be he is having recurrent endocarditis. I did discuss option of admitting patient for IV antibiotics with scheduled echocardiogram when available here. Patient does not want to pursue this option as he feels very well and states he wants to go tomorrow morning to his team where he does have a follow-up appointment for further management. I agree this is reasonable and after some shared decision making patient discharged in very stable condition with strict return precautions overnight including any fever/chills, dyspnea, fatigue, or other new concerning symptoms prior to going to [facility] for follow-up. Assessment: Atypical chest pain Disposition: Home with follow-up in 8 hours General Adult HPI - General Chief complaint: Chest Pain Stated complaint: chest pain Time Seen by Provider: 04/21/20 18:00 - History of Present Illness HPI narrative: Patient 29-year-old male history of endocarditis status post open heart surgery presenting for follow-up. Patient was seen yesterday and was evaluated for some atypical chest pain. Concern for recurrent endocarditis. Patient was discharged with instructions to return for echocardiogram today. He was unable to get a ride during the daytime when echocardiogram was available and arrives this evening. He states now he would like to go follow-up with his team at [facility] who performed his open heart surgery and does have a follow-up appointment tomorrow. - Related Data Previous Rx's Medication Instructions Recorded Albuterol Sulfate [Albuterol 2 puffs IH Q6HP PRN 30 Days #1 04/05/20 Sulfate Hfa] hfa.[email or web address].[email or web address] Azithromycin [Z-Aryan 250mg Tab*] 250 mg PO UD DOSE PK #6 tab 04/05/20 Benzonatate [Tessalon Perle 100mg 100 mg PO TIDP PRN #30 cap 04/05/20 Cap] Ondansetron [Zofran 4mg ODT] 4 mg PO Q8HP PRN #9 tab.rapdis 04/05/20 Allergies Allergy/AdvReac Type Severity Reaction Status Date / Time No Known Allergies Allergy Verified 04/05/20 14:43 [facility] [place] History - Hepatitis A Screen Attestation statement:: This patient has been screened for Hepatitis A risk factors. Medical History: Reports:: Anxiety Laterality Cases: Bilateral: Tonsillectomy Other Surgeries: Yes: Other Amputation: No Fractures: Yes (RT Wrist) - Social History Smoking Status: Never smoker Tobacco Type: smokeless tobacco Alcohol Intake: never
[2020-04-21 18:01] VITALS: BMI 20.7
[2020-04-21 18:48] VITALS: BP 105/65; PULSE 88; RESP 18; TEMP 36.6; O2SAT 98
== END 2020-04-21 18:50 | disposition home or self-care (01) ==
PROVIDERS: Emergency Provider Emergency Medicine
DX: R07.89 Other chest pain (principal); F41.9 Anxiety disorder, unspecified
CPT/HCPCS: 99282

== ENCOUNTER → 2021-03-13 17:55 | Outpatient (CLI) | payer MEDICAID, SELFPAY | PROVIDERS: PCP Emergency Medicine; Visit Provider Nurse Practitioner Family | DX: Z20.822 Contact with and (suspected) exposure to COVID-19 (principal) | CPT/HCPCS: C9803; U0003; U0005 ==

== ENCOUNTER 2022-08-19 20:21 | Emergency (ER) | payer MEDICAID, SELFPAY ==
[2022-08-19 20:21] VITALS: BP 128/99; PULSE 88; RESP 14; TEMP 36.4; O2SAT 99; BMI 21.2
[2022-08-19 20:30] VITALS: BP 121/94; PULSE 87; RESP 17; O2SAT 93
--- NOTE | 2022-08-19 20:41 | PC.NURSE ---
pt given a drink per request and is A&Ox4. He denies any chest pain, SOA, or weakness
--- NOTE | 2022-08-19 20:50 | ECG_ITS ---
APPROVED REPORT Exam: Resting ECG HR:79 bpm ECG Measurements Heart Rate 79 AXES MA 142 P 72 QRSd 98 QRS 74 QT 367 T 62 QTc 402 Conclusion SINUS RHYTHM VOLTAGE CRITERIA FOR LVH [MEETS CRITERIA IN ONE OF: R(aVL), S(V1), R(V5), R(V5/V6)+S(V1)] NONSPECIFIC T-WAVE ABNORMALITY ABNORMAL ECG UNCONFIRMED REPORT Electronically signed by : Jorge Hyman MD 08/20/2022 21:21:01
--- NOTE | 2022-08-19 20:53 | PC.NURSE ---
pt dad arrived to pt bedside. pt continues to refuse IV Or blood work and will only let staff monitor and observe him. pt in no obvious distress at this time. no complaints reported
[2022-08-19 21:12] VITALS: BP 120/89; PULSE 88; RESP 14; TEMP 36.7; O2SAT 99
--- NOTE | 2022-08-19 21:12 | HMH.EDOD ---
Discharge Plan Disposition Patient Disposition: Home, Self-Care Chief Complaint: Overdose Prescriptions Prescriptions: No Action buprenorphine-naloxone 8-2 mg tablet, sublingual 1 tab sublingual BID escitalopram oxalate [Lexapro] 10 mg tablet 10 mg PO DAILY Qty: 30 1RF clonazepam [Klonopin] 0.5 mg tablet 0.5 mg PO TID Qty: 90 2RF Referrals Follow up/Referrals: Noel Castrejon MD [Primary Care Provider] - See instructions Clinical Impressions Clinical Impression: Heroin overdose, IVDU (intravenous drug user), Heart murmur Instructions Patient Instructions: DI for Drug Overdose in Adults Discharge ED Provider: Lucía (ED)Noel Overdose HPI General Chief Complaint: Overdose Stated Complaint: overdose Time Seen by Provider: 08/19/22 20:40 Mode of Arrival: EMS Source of Information: Patient, EMS and Medical Record Limitations: No Limitations Description of Symptoms (Recalled from ER Triage Doc. by RN): pt stated that today he injected heroin and he came to and there were people standing around him. the pt stated that the overdose was unintentional. pt refuses blood work. 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 - pt with prev use and rehab and had card surg in 2019 sec to gal [facility] complaint: accidental overdose Onset (ago): hour(s) Context: Accidental Overdose: wanted to get high Treatments Prior to Arrival: narcan Related Data Home Medications Medication Instructions Recorded Confirmed buprenorphine 8 mg-naloxone 2 mg 1 tab sublingual BID 05/20/22 07/16/22 sublingual tablet Previous Rx's Medication Instructions Recorded escitalopram oxalate 10 mg tablet 10 mg PO DAILY #30 tabs 05/20/22 (Lexapro) clonazepam 0.5 mg tablet (Klonopin) 0.5 mg PO TID #90 tabs 07/16/22 Allergies Allergy/AdvReac Type Severity Reaction Status Date / Time No Known Allergies Allergy Verified 07/16/22 13:17 [facility] Disclaimer: The information contained in this section may have been updated after the patient was seen, as this information can be updated by other users. Social History Smoking Status: Current every day smoker tobacco type: smokeless tobacco alcohol intake: never substance use type: former substance user, heroin and methamphetamine current occupational status: unemployed Travel in the last 8 weeks: None housing: house ROS Obtained: Yes All systems reviewed & no additional complaints except as documented Physical Exam General General appearance: alert Head Head exam: normocephalic Eye Eye exam: Present PERRL and EOMI ENT ENT exam: Present mucous membranes moist Neck Neck exam: Present trachea midline Respiratory Respiratory exam: Present normal lung sounds bilaterally; Absent respiratory distress Cardiovascular Cardiovascular exam: Present regular rate and systolic murmur Abdominal Exam Abdominal exam: Present soft Extremities Exam Extremities exam: Present full ROM Neurological Exam Neurological exam: Present alert, oriented X3 and CN II-XII intact; Absent motor sensory deficit Skin Skin exam: Absent rash Medical Decision Making Medical Records Medical records reviewed: Yes I reviewed the patient's medical records. Peter Inquiry Pt receiving controlled substance: No Vital Signs: 08/19/22 20:21 08/19/22 20:30 Temperature 97.6 F Temperature Source Oral Pulse Rate 87 Pulse Rate [Right] 88 Respiratory Rate 14 17 Blood Pressure 121/94 H Blood Pressure [Right Arm] 128/99 H Blood Pressure Mean [Right Arm] 108 02 Sat by Pulse Oximetry 99 93 L Oxygen Delivery Method Room Air Room Air ECG Data Tracing #1: Normal Sinus Rhythm: Yes Ischemic changes: non-specific ST-T wave changes Medical Decision Narrative: pt with ivdu and is stable and discussed rehab Critical Care Ti
== END 2022-08-19 21:18 | disposition home or self-care (01) ==
PROVIDERS: Emergency Provider Emergency Medicine; PCP Emergency Medicine
DX: T40.1X1A Poisoning by heroin, accidental (unintentional), initial encounter (principal); R01.1 Cardiac murmur, unspecified; F17.290 Nicotine dependence, other tobacco product, uncomplicated
CPT/HCPCS: 93005; 99283; 99284